=== PATIENT | male | born 2000 | race Caucasian/White ===

== ENCOUNTER 2020-07-01 19:11 | Emergency (ER) | payer OTHER ==
[2020-07-01 19:20] VITALS: BP 153/79
--- NOTE | 2020-07-01 19:43 | ED Physician Documentation ---
PD HPI OPHTHO - Stated complaint Stated Complaint: EYE IRRITATION - Chief complaint Chief Complaint: Heent - History obtained from History obtained from: Patient - Additional information Additional information: Some cleaning fluid got in his eye at work tonight. He is active [employer]. It went in the left eye. He flushed his eye. He feels fine now. No pain, no visual deficit. Review of Systems Constitutional: reports: Reviewed and negative Eyes: reports: Reviewed and negative Ears: reports: Reviewed and negative Nose: reports: Reviewed and negative PD PAST MEDICAL HISTORY - Past Medical History Past Medical History: Yes Cardiovascular: None Respiratory: None Neuro: None Endocrine/Autoimmune: None GI: None : None HEENT: None Psych: None Musculoskeletal: None Derm: None - Past Surgical History Past Surgical History: Yes HEENT: Tonsil/Adenoidectomy - Present Medications Home Medications: Ambulatory Orders Medication Instructions Recorded Confirmed No Known Home Medications 07/01/20 07/01/20 - Allergies Allergies/Adverse Reactions: Allergies Allergy/AdvReac Type Severity Reaction Status Date / Time No Known Drug Allergies Allergy Verified 07/01/20 19:21 - Social History Does the pt smoke?: Yes Smoking Status: Current some day smoker Does the pt drink ETOH?: No Does the pt have substance abuse?: No - Immunizations Immunizations are current?: Yes PD ED PE NORMAL - Vitals Vital signs reviewed: Yes - General General: Alert and oriented X 3, No acute distress - HEENT HEENT: PERRL, EOMI, Other (No conjunctivitis. No fluorescein uptake. pH 7 in the left eye.) - Neuro Neuro: Alert and oriented X 3, Normal speech Results - Vitals Vitals: Vital Signs - 24 hr 07/01/20 19:17 Temperature 36.3 C L Heart Rate 85 Respiratory 16 Rate Blood Pressure 153/79 H O2 Saturation 96 Oxygen O2 Source Room air Departure - Departure Disposition: 01 Home, Self Care Clinical Impression: Chemical exposure of eye Condition: Good Record reviewed to determine appropriate education?: Yes Instructions: ED Chemical Conjunctivitis Comments: No evidence of damage to the eye, return if worsening. Forms: Activity restrictions
== END 2020-07-01 19:46 | disposition home or self-care (01) ==
LOC: ED 19:11
DX: T65.891A Toxic effect of other specified substances, accidental (unintentional), initial encounter (principal); H10.212 Acute toxic conjunctivitis, left eye; Y92.139 Unspecified place military base as the place of occurrence of the external cause; Y99.1 Military activity; F17.200 Nicotine dependence, unspecified, uncomplicated
CPT/HCPCS: 99282

== ENCOUNTER 2020-11-06 23:27 | Emergency (ER) | payer OTHER ==
[2020-11-07] MEDS ORDERED: FAMOTIDINE 20 MG TABLET PO STA (00:01)
[2020-11-07] MEDS ORDERED: DEXAMETHASONE 10 MG/ML VIAL PO STA (00:01)
[2020-11-07] MEDS ORDERED: CHERRY SYRUP 10 ML UDC PO ONE (00:01)
--- NOTE | 2020-11-07 00:16 | ED Physician Documentation ---
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 He also experienced some mild throat tightening that resolved after taking 50 mg of diphenhydramine. Patient states that his symptoms appear to have completely resolved at this point and he feels back to normal. Denies headache, nausea vomiting, lightheadedness, shortness of breath or chest pain. Rash is now gone. No facial swelling. Review of Systems Ten Systems: 10 systems reviewed and negative Constitutional: denies: Fever, Chills Cardiac: denies: Chest pain / pressure Respiratory: reports: Other (Throat tightening). denies: Dyspnea, Cough, Wheezing Skin: reports: Rash Neurologic: denies: Near syncope PD PAST MEDICAL HISTORY - Past Medical History Past Medical History: No Cardiovascular: None Respiratory: None Neuro: None Endocrine/Autoimmune: None GI: None : None HEENT: None Psych: None Musculoskeletal: None Derm: None - Past Surgical History Past Surgical History: Yes HEENT: Tonsil/Adenoidectomy - Present Medications Home Medications: Ambulatory Orders Medication Instructions Recorded Confirmed No Known Home Medications 07/01/20 07/01/20 - Allergies Allergies/Adverse Reactions: Allergies Allergy/AdvReac Type Severity Reaction Status Date / Time strawberry Allergy Respiratory Verified 11/06/20 23:37 - Social History Does the pt smoke?: Yes Smoking Status: Current every day smoker Does the pt drink ETOH?: No Does the pt have substance abuse?: No - Immunizations Immunizations are current?: Yes - POLST Patient has POLST: No PD ED PE NORMAL - Vitals Vital signs reviewed: Yes - General General: Alert and oriented X 3, No acute distress, Well developed/nourished - HEENT HEENT: Atraumatic, PERRL, EOMI, Moist mucous membranes, Pharynx benign - Neck Neck: Supple, no meningeal sign - Cardiac Cardiac: RRR - Respiratory Respiratory: No respiratory distress, Clear bilaterally - Abdomen Abdomen: Non tender, Non distended - Derm Derm: Normal color, Warm and dry, No rash - Extremities Extremities: No deformity - Neuro Neuro: Alert and oriented X 3 - Psych Psych: Normal mood, Normal affect Results - Vitals Vitals: Vital Signs - 24 hr 11/06/20 11/07/20 23:34 00:11 Temperature 36.9 C 36.9 C Heart Rate 103 H 103 H Respiratory 16 16 Rate Blood Pressure 190/86 H 190/86 H O2 Saturation 96 96 Oxygen O2 Source Room air PD MEDICAL DECISION MAKING - ED course ED course: 19-year-old man presents with allergic reaction to slushy drink that possibly had strawberries in it. His symptoms had resolved by the time that he arrived to the emergency room after taking 50 mg diphenhydramine at home. We will treat him symptomatically with Decadron, Pepcid and reevaluate. Patient feeling back to normal. will dc with return precautions. patient has epipen at home. will f/u pmd. Departure - Departure Disposition: 01 Home, Self Care Clinical Impression: Allergic reaction Condition: Good Instructions: ED Allergic Reaction General Other Comments: You were seen in the emergency department for allergic reaction. Please follow- up with your primary doctor this week. Return to the emergency department for any new or worsening symptoms or other concerns. Use your EpiPen for any anaphylactic reaction and come to the ED immediately.
[2020-11-07 00:47] VITALS: BP 165/90
== END 2020-11-07 00:42 | disposition home or self-care (01) ==
LOC: ED 23:27
DX: T78.40XA Allergy, unspecified, initial encounter (principal); F17.200 Nicotine dependence, unspecified, uncomplicated
CPT/HCPCS: 99282; 99284; A9270